=== PATIENT | female | born 1945 | race Caucasian/White ===

== ENCOUNTER 2017-02-18 11:48 | Inpatient (IN) ==
--- NOTE | 2017-02-18 12:58 | EKG Report ---
Test Performed on : 02/18/2017 12:45:30 PM Test Reason : AMS Blood Pressure : / mmHG Vent. Rate : 056 BPM Atrial Rate : 056 BPM P-R Int : 162 ms QRS Dur : 090 ms QT Int : 454 ms P-R-T Axes : 028 006 032 degrees QTc Int : 438 ms Sinus bradycardia. Otherwise normal ECG No previous ECGs available Unconfirmed Result
[2017-02-18 13:10] LABS: MANUAL DIFF NEEDED? NO
--- NOTE | 2017-02-18 13:15 | Diag Imaging Result Doc PS360 ---
EXAM: CT HEAD WITHOUT HISTORY: Altered mental status TECHNIQUE: CT brain without contrast. Dose reduction protocol. COMPARISON: None. FINDINGS: No parenchymal hemorrhage. No epidural or subdural hematoma. No subarachnoid hemorrhage. Chronic microvascular ischemic changes. This is most pronounced in the left frontoparietal region. No mass identified on this noncontrasted study. No sinus opacification. Mild ventricular prominence. IMPRESSION: 1.No hemorrhage 2.Microvascular ischemic changes Electronically signed by Abhinav Morton 02/18/2017 1:12 PM
--- NOTE | 2017-02-18 13:21 | Diag Imaging Result Doc PS360 ---
EXAM: CHEST-1 VIEW HISTORY: AMS TECHNIQUE: PA chest COMMENT: There is no evidence of acute cardiac or pulmonary disease. There are no previous studies. IMPRESSION: No acute disease. Electronically signed by Jose Echeverria 02/18/2017 1:19 PM
[2017-02-18 13:26] LABS: BASO% 0.7 % (0.0-0.8); EOS# 0.14 X1000 (0.0-0.7); EOS% 2.5 % (0.0-10.0); HEMATOCRIT 38.5 % (37.0-47.0); HEMOGLOBIN 12.8 g/dL (12.0-16.0); LYMPH# 1.95 X1000 (1.2-3.4); LYMPH% 35.2 % (20.5-51.1); MCH 29.6 PG (27-31); MCHC 33.2 g/dL (33-37); MCV 89.1 FL (81-99); MPV 10.5 FL (7.4-10.4); NEUT% 52.6 % (42.2-75.2); PLT 226 X1000 (130-400); RBC 4.32 XMIL (4.2-5.4)
[2017-02-18 13:44] LABS: INR 0.96 (0.86-1.15); PROTIME 13.6 Seconds (12.1-15.5); PTT PL 33.8 Seconds (22.6-43.9)
[2017-02-18 13:56] LABS: AGAP 9; ALBUMIN 4.2 g/dL (3.5-5.0); ALKALINE PHOSPHATASE 66 U/L (32-104); BUN 19 mg/dL (8-22); CALCIUM 9.4 mg/dL (8.8-10.2); CHLORIDE 104 mmol/L (98-107); CK PROFILE 72 U/L (24-173); COSMO 279; GOT 16 U/L (10-30); GPT 12 U/L (10-36); POTASSIUM 4.1 mmol/L (3.5-5.1); SODIUM 139 mmol/L (136-145); TCO2 27 mmol/L (25-35); TOTAL PROTEIN 6.8 g/dL (6.3-8.3)
--- NOTE | 2017-02-18 13:59 | ED EKG INTERP ---
This chart was entered by Darlene Riley Scribe, acting as scribe for Anurag Bullock MD. EKG Interpretation - EKG Time of EKG reading by physician:: 12:45 EKG Read and Signed by:: Anurag Bullock EKG Interpretation (*Must complete 3 of following elements*): Abnormal Rate: 56 Rhythm: sinus bradycardia [place]: normal QRS: normal [place] Interval: normal ST Wave: normal Comments: sinus bradycardia Attestation - Physician/ CARLOS Attestation Patient care was provided by Advanced Practice Provider:: No The physician spent face to face time with patient:: Yes Advanced Practice Provider documentation review:: Supervising physician onsite and consulted in the evaluation and care of this patient. The physician did have a face to face encounter with the patient. This chart was documented by the indicated scribe, (Darlene Riley Scribe) and accurately reflects the services I performed and decisions made by me, Anurag Bullock MD, as attested by the provider's signature.
[2017-02-18 14:19] LABS: UR AMPHETAMINES QUAL NONE DETECTED (NONE DETECT); UR BARBITUATES QUAL NONE DETECTED (NONE DETECT); UR BENZODIAZEPIN QUAL NONE DETECTED (NONE DETECT); UR CANNABINOIDS QUAL NONE DETECTED (NONE DETECT); UR COCAINE QUAL NONE DETECTED (NONE DETECT); UR MDMA QUAL NONE DETECTED (NONE DETECT); UR METHADONE QUAL NONE DETECTED (NONE DETECT); UR METHAMPHETAMINE QUAL NONE DETECTED (NONE DETECT); UR OPIATES QUAL NONE DETECTED (NONE DETECT); UR OXYCODONE QUAL NONE DETECTED (NONE DETECT); UR PCP QUAL NONE DETECTED (NONE DETECT); UR TCA QUAL NONE DETECTED (NONE DETECT)
[2017-02-18 14:23] LABS: BILIRUBIN URINE NEGATIVE (NEGATIVE); BLOOD URINE NEGATIVE (NEGATIVE); CLARITY CLEAR (CLEAR); COLOR YELLOW; GLUCOSE URINE NEGATIVE (NEGATIVE); LEUKOCYTES URINE 1+ (NEGATIVE); NITRITE URINE NEGATIVE (NEGATIVE); PROTEIN URINE TRACE mg/dL (NEGATIVE); SP GRAVITY URINE 1.015; UROBILINOGEN URINE NORMAL
[2017-02-18] MEDS ORDERED: ROCEPHIN 1 GM/NS 1 GM/50 ML IVPB IV ONE (14:33)
[2017-02-18 14:34] LABS: URINE CAST NONE SEEN /LPF; URINE CRYSTAL NONE SEEN /HPF; URINE CULTURE PL NEEDED? YES; URINE EPITHELIAL CELLS <10 /HPF (<10); URINE SOURCE CLEAN CATCH; URINE WBC <10 /HPF (<10)
--- NOTE | 2017-02-18 15:01 | PROVIDER DOCUMENTATION ---
This chart was entered by Darlene Riley Scribe, acting as scribe for Anurag Bullock MD. HPI-Neurological Disorder - General Chief Complaint: Stroke-Like Symptoms Stated Complaint: Stroke-Like Symptoms Time Seen by Provider: 02/18/17 12:09 Source: patient Allergies/Adverse Reactions: Patient Allergies Allergy/AdvReac Type Severity Reaction Status Date / Time metronidazole [From Flagyl] Allergy NAUSEA Verified 02/18/17 12:02 pregabalin [From Lyrica] Allergy Unknown Verified 02/18/17 12:02 Home Medications: Home Medication List Medication Instructions Recorded Confirmed Last Taken Type Aspirin 81 mg PO DAILY 02/18/17 02/18/17 Unknown History Atorvastatin Calcium [Lipitor] 20 mg PO DAILY 02/18/17 02/18/17 Unknown History Dicyclomine [Bentyl] 10 mg PO PRN PRN 02/18/17 02/18/17 Unknown History Fluoxetine [Prozac] 10 mg PO TID 02/18/17 02/18/17 Unknown History Gabapentin 300 mg PO DAILY 02/18/17 02/18/17 Unknown History Latanoprost 0.005% Oph Soln 1 drop BOTH EYES DAILY 02/18/17 02/18/17 Unknown History [Xalatan 0.005% Oph Soln] Levothyroxine [Synthroid] 50 mg PO DAILY 02/18/17 02/18/17 Unknown History Multivitamin [Multi-Vitamin Daily] 1 tab PO DAILY 02/18/17 02/18/17 Unknown History Sennosides/Docusate Sodium [Senna 2 tab PO DAILY 02/18/17 02/18/17 Unknown History S Tablet] Tramadol HCl [Tramadol HCl] 50 mg PO PRN PRN 02/18/17 02/18/17 Unknown History Trazodone [Desyrel] 25 mg PO DAILY 02/18/17 02/18/17 Unknown History - History of Present Illness-Neuro Nature of Presenting Problem: Patient is a 71 year old female who presents in the ED with complaints of neurological symptoms. She states she had a TIA in November 2016 that has caused residual right sided weakness, but states she woke up yesterday morning with weakness in both of her legs. She also states she noticed the right side of her face drooping at 8:00 a.m. this morning, and states she has also had difficul/ slurred speech. She reports history of hyperlipidemia, thyroid disease, and anxiety. She denies chest pain, syncope, fall, nausea/vomiting, and any other symptoms. Headache Location: denies: frontal, temporal, occipital, parietal, global, other Severity: reports: moderate Onset/Duration: reports: 24 hours ago Timing: reports: still present Context: reports: facial droop Character of Altered Mental Status: reports: unchanged from baseline Any recent trauma/injury?: reports: none Character of Deficits: reports: new weakness, impaired speech New weakness or altered sensation location:: reports: ANGY HINSON Cognitive Baseline: alert, oriented x3 Gait Baseline: walks without assistance Associated Symptoms: reports: slurred speech, weakness (left sided) Similar Symptoms Previously?: Yes (hx TIA) Recently seen or treated by another doctor?: No Review of Systems - Adult - REVIEW OF SYSTEMS - ADULT Constitutional: reports: no symptoms reported Eyes: reports: blurred vision Ears, Nose, Mouth & Throat: reports: no symptoms reported Cardiovascular: reports: no symptoms reported Respiratory: reports: no symptoms reported Gastrointestinal: reports: no symptoms reported Genitourinary: reports: no symptoms reported Musculoskeletal: reports: no symptoms reported Integumentary: reports: no symptoms reported Neurological: reports: slurred speech, other (left upper and lower extremity weakness, right facial droop) Psychiatric: reports: no symptoms reported Endocrine: reports: no symptoms reported Hematologic/Lymphatic: reports: no symptoms reported Allergic/Immunologic: reports: no symptoms reported All Other Systems: Reviewed and Negative Past History - Adult - PAST MEDICAL HISTORY-ADULT Review of Records: reports: Old Records Reviewed, Nursing Assessment Review, Medications Reviewed Cardiovascular: reports: hyperlipidemia Respiratory: reports: denies history Gastrointestinal: reports: denies history Obstetrical/Gynecological: reports: denies history Genitourinary: reports: denies history Musculoskeletal: reports: denies history Neurological: reports: TIA Psychiatric: reports: anxiety Endocrine/Immune: reports: thyroid disorder Other Conditions: reports: denies history - PRIOR SURGERIES/PROCEDURES Surgical/Procedure History: reports: orthopedic (extremity) - IMMUNIZATION STATUS Childhood Immunizations: See Nurse Assessment Flu Vaccine: See Nurse Assessment - FAMILY HISTORY Family History: reviewed, not pertinent - SOCIAL HISTORY Smoking: denies Substance Use: none/never Alcohol Use Frequency: never Living Situation: family Physical Exam- Neurological - Physical Exam-Neuro Initial Vital Signs Reviewed: Yes General Appearance: alert, no apparent distress Eye Exam: bilateral eye: normal inspection, PERRL, EOMI HENMT: normocephalic/atraumatic, moist mucous membranes Head Injury: no evidence of injury Neck: full range of motion Respiratory: chest non-tender, lungs clear, normal breath sounds, no pleuratic chest pain, no respiratory distress, no accessory muscle use Cardiovascular: normal peripheral pulses, regular rate, rhythm, no edema, no gallop, no JVD, no murmur Abdominal Exam: non tender, soft, no organomegaly, no pulsatile mass Lymphatic: no adenopathy Extremity: non-tender, no pedal edema, 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 Exam: normal hearing, PERRL, abnormal speech (slurred), facial asymmetry, facial droop (right) Coordination/Gait: normal gait Motor/Sensory: weak motor strength LUE, weak motor strength LLE Neurologic: facial droop (right) Integumentary: normal color, normal turgor, warm/dry Psych/Mental Status: normal mood/affect, oriented x 3 - Glascow Coma Scale Best Eye Response: (4) open spontaneously Best Verbal Response: (5) oriented Best Motor Response: (6) obeys commands Total Glascow Score: 15 Progress - PLAN OF CARE/RESULTS Progress/Plan/Lab Results: Vital Signs - 8 hr 02/18/17 11:50 Temperature 98.7 F Pulse Rate 68 Respiratory Rate 16 Blood Pressure 146/77 O2 Sat by Pulse Oximetry 96 Laboratory Results - last 24 hr 02/18/17 02/18/17 02/18/17 12:50 12:50 12:50 WBC RBC Hgb Hct MCV MCH MCHC RDW Std Deviation Plt Count MPV Immature Gran % (Auto) Neut % (Auto) Lymph % (Auto) [place] % (Auto) Eos % (Auto) Baso % (Auto) Immature Gran # (Auto) Neut # (Auto) Lymph # (Auto) [place] # (Auto) Eos # (Auto) Baso # (Auto) PT INR APTT (Factor Assay) Sodium 139 Potassium 4.1 Chloride 104 Carbon Dioxide 27 Anion Gap 9 BUN 19 Creatinine 0.6 Estimated GFR/1.73 m2 > 60 BUN/Creatinine Ratio 32 Glucose 82 Calculated Osmolality 279 Calcium 9.4 Magnesium Total Bilirubin 0.40 AST 16 ALT 12 Alkaline Phosphatase 66 Creatine Kinase 72 Troponin T < 0.010 Wva-A-Oncchgcdrle Pept Total Protein 6.8 Albumin 4.2 Globulin 3.0 Albumin/Globulin Ratio 2.0 Plasma Lactate 0.9 Urine Source Urine Color Urine Clarity Urine pH Ur Specific [place] Urine Protein Urine Ketones Urine Blood Urine Nitrite Urine Bilirubin Urine Urobilinogen Urine Microscopic RBC Urine WBC Urine Microscopic WBC Ur Epithelial Cells Urine Crystals Urine Bacteria Urine Casts Urine Yeast Urine Glucose Urine Opiates Screen Ur Oxycodone Screen Urine Methadone Screen Ur Barbituates Screen Ur Tricyclics Screen Ur Phencyclidine Scrn Ur Amphetamines Screen U Methamphetamines Scrn Urine MDMA Screen U Benzodiazepines Scrn Urine Cocaine Screen U Cannabinoids Screen Plasma/Serum Ethyl Alc 02/18/17 02/18/17 02/18/17 12:50 12:50 12:50 WBC 5.54 RBC 4.32 Hgb 12.8 Hct 38.5 MCV 89.1 MCH 29.6 MCHC 33.2 RDW Std Deviation 12.9 Plt Count 226 MPV 10.5 H Immature Gran % (Auto) 0.0 Neut % (Auto) 52.6 Lymph % (Auto) 35.2 [place] % (Auto) 9.0 Eos % (Auto) 2.5 Baso % (Auto) 0.7 Immature Gran # (Auto) 0.00 Neut # (Auto) 2.91 Lymph # (Auto) 1.95 [place] # (Auto) 0.50 Eos # (Auto) 0.14 Baso # (Auto) 0.04 PT 13.6 INR 0.96 APTT (Factor Assay) 33.8 Sodium Potassium Chloride Carbon Dioxide Anion Gap BUN Creatinine Estimated GFR/1.73 m2 BUN/Creatinine Ratio Glucose Calculated Osmolality Calcium Magnesium Total Bilirubin AST ALT Alkaline Phosphatase Creatine Kinase Troponin T [id number]-I-Qddmuojzdcd Pept Total Protein Albumin Globulin Albumin/Globulin Ratio Plasma Lactate Urine Source Urine Color Urine Clarity Urine pH Ur Specific [place] Urine Protein Urine Ketones Urine Blood Urine Nitrite Urine Bilirubin Urine Urobilinogen Urine Microscopic RBC Urine WBC Urine Microscopic WBC Ur Epithelial Cells Urine Crystals Urine Bacteria Urine Casts Urine Yeast Urine Glucose Urine Opiates Screen Ur Oxycodone Screen Urine Methadone Screen Ur Barbituates Screen Ur Tricyclics Screen Ur Phencyclidine Scrn Ur Amphetamines Screen U Methamphetamines Scrn Urine MDMA Screen U Benzodiazepines Scrn Urine Cocaine Screen U Cannabinoids Screen Plasma/Serum Ethyl Alc 02/18/17 02/18/17 02/18/17 12:50 12:50 13:35 WBC RBC Hgb Hct MCV MCH MCHC RDW Std Deviation Plt Count MPV Immature Gran % (Auto) Neut % (Auto) Lymph % (Auto) [place] % (Auto) Eos % (Auto) Baso % (Auto) Immature Gran # (Auto) Neut # (Auto) Lymph # (Auto) [place] # (Auto) Eos # (Auto) Baso # (Auto) PT INR APTT (Factor Assay) Sodium Potassium Chloride Carbon Dioxide Anion Gap BUN Creatinine Estimated GFR/1.73 m2 BUN/Creatinine Ratio Glucose Calculated Osmolality Calcium Magnesium 2.2 Total Bilirubin AST ALT Alkaline Phosphatase Creatine Kinase Troponin T [id number]-Yfymzqtpelh Pept 196 Total Protein Albumin Globulin Albumin/Globulin Ratio Plasma Lactate Urine Source CLEAN CATCH Urine Color YELLOW Urine Clarity CLEAR Urine pH 7.0 Ur Specific [place] 1.015 Urine Protein TRACE A Urine Ketones NEGATIVE Urine Blood NEGATIVE Urine Nitrite NEGATIVE Urine Bilirubin NEGATIVE Urine Urobilinogen NORMAL Urine Microscopic RBC Not Reportable Urine WBC 1+ A Urine Microscopic WBC <10 Ur Epithelial Cells <10 Urine Crystals NONE SEEN Urine Bacteria NEGATIVE Urine Casts NONE SEEN Urine Yeast NONE SEEN Urine Glucose NEGATIVE Urine Opiates Screen Ur Oxycodone Screen Urine Methadone Screen Ur Barbituates Screen Ur Tricyclics Screen Ur Phencyclidine Scrn Ur Amphetamines Screen U Methamphetamines Scrn Urine MDMA Screen U Benzodiazepines Scrn Urine Cocaine Screen U Cannabinoids Screen Plasma/Serum Ethyl Alc 02/18/17 13:35 WBC RBC Hgb Hct MCV MCH MCHC RDW Std Deviation Plt Count MPV Immature Gran % (Auto) Neut % (Auto) Lymph % (Auto) [place] % (Auto) Eos % (Auto) Baso % (Auto) Immature Gran # (Auto) Neut # (Auto) Lymph # (Auto) [place] # (Auto) Eos # (Auto) Baso # (Auto) PT INR APTT (Factor Assay) Sodium Potassium Chloride Carbon Dioxide Anion Gap BUN Creatinine Estimated GFR/1.73 m2 BUN/Creatinine Ratio Glucose Calculated Osmolality Calcium Magnesium Total Bilirubin AST ALT Alkaline Phosphatase Creatine Kinase Troponin T Ggy-F-Btqqopwewyr Pept Total Protein Albumin Globulin Albumin/Globulin Ratio Plasma Lactate Urine Source Urine Color Urine Clarity Urine pH Ur Specific [place] Urine Protein Urine Ketones Urine Blood Urine Nitrite Urine Bilirubin Urine Urobilinogen Urine Microscopic RBC Urine WBC Urine Microscopic WBC Ur Epithelial Cells Urine Crystals Urine Bacteria Urine Casts Urine Yeast Urine Glucose Urine Opiates Screen NONE DETECTED Ur Oxycodone Screen NONE DETECTED Urine Methadone Screen NONE DETECTED Ur Barbituates Screen NONE DETECTED Ur Tricyclics Screen NONE DETECTED Ur Phencyclidine Scrn NONE DETECTED Ur Amphetamines Screen NONE DETECTED U Methamphetamines Scrn NONE DETECTED Urine MDMA Screen NONE DETECTED U Benzodiazepines Scrn NONE DETECTED Urine Cocaine Screen NONE DETECTED U Cannabinoids Screen NONE DETECTED Plasma/Serum Ethyl Alc Orders Category Date Time Status Cardiac Monitoring DIRECTED Care 02/18/17 12:31 Active Finger Stick Blood Sugar (ED) DIRECTED Care 02/18/17 12:31 Active Saline Loc NOW Care 02/18/17 12:31 Active CHEST-1 VIEW [RAD] Stat Exams 02/18/17 12:[address] HEAD W/O CONTRAST [CT] Stat Exams 02/18/17 12:31 Completed ALCOHOL BLOOD Stat Lab 02/18/17 12:50 Completed CBC WITH ELECTRONIC DIFF [HEME] Stat Lab 02/18/17 12:50 Completed CK PROFILE [SP CHEM] Stat Lab 02/18/17 12:50 Completed COMPREHENSIVE METABOLIC PANEL [CHEM] Stat Lab 02/18/17 12:50 Completed LACTATE, PLASMA [CHEM] Stat Lab 02/18/17 12:50 Completed MAGNESIUM [CHEM] Stat Lab 02/18/17 12:50 Completed PRO B-NATRIURETIC PEPTIDE Stat Lab 02/18/17 12:50 Completed [address]IME WITH INR PL [COAG] Stat Lab 02/18/17 12:[address] [COAG] Stat Lab 02/18/17 12:50 Completed TROPONIN T Stat Lab 02/18/17 12:[address] W/POSS RFLX CULT [URINALYSIS] Stat Lab 02/18/17 13:35 Completed URINE CULTURE [RM] Routine Lab 02/18/17 14:34 Ordered URINE DRUG SCREEN PL Stat Lab 02/18/17 13:35 Completed CefTRIAXONE 1 GM/NS [Rocephin 1 gm/Ns] Med 02/18/17 14:33 Active 1 gm in 50 ml IV NOW Pulse Oximetry Stat Oth 02/18/17 12:31 Active EKG [EKG] Stat Ther 02/18/17 12:31 Draft Result Diagrams: 02/18/17 12:50 02/18/17 12:50 - REASSESSMENT Reassessment #1 Time Reassessed: 15:00 Status: improving (Reports her symptoms are improving and she can talk better now. Will admit to Dr. Josue.) - CONSULTS/PCP/HOSPITALIST Notification #1 *Consult/PCP/Hospitalist*: Dr. Josue paged Departure - Departure Date of Disposition Decision: 02/18/17 Time of Disposition Decision: 15:00 DIAGNOSIS: TIA (transient ischemic attack) Disposition: ADMITTED INPATIENT 09 Certified Medical Emergency: Emergent Condition: Stable Referrals and Follow-Ups: None,PCP [Primary Care Provider] - - Critical Care Note This patient required my direct & personal management of CC.: No Attestation - Physician/ CARLOS Attestation Patient care was provided by Advanced Practice Provider:: No The physician spent face to face time with patient:: Yes Advanced Practice Provider documentation review:: Supervising physician onsite and consulted in the evaluation and care of this patient. The physician did have a face to face encounter with the patient. - NIH Stroke Scale NIH Type: Initial Evaluation Level of Consciousness: 0-Alert LOC Questions (ask month and age): 0-Answers Both Correctly LOC Commands (ask to open & close eyes;make a fist, let go): 0-Obeys Both Correctly Best Gaze (horizontal eye movement): 0-Normal Facial Palsy (show teeth or raise eyebrows & close eyes tght: 2-Partial Paralysis Stroke tPA Guidelines - Inclusion Criteria for IV tPA 18 years old or older: Yes Onset <3 hours ago *OR* 3-4.5 hours ago: No - Consultation Reason not a candidate:: unknown time of onset of symptoms This chart was documented by the indicated scribe, (Darlene Riley Scribe) and accurately reflects the services I performed and decisions made by me, Anurag Bullock MD, as attested by the provider's signature.
[2017-02-18] MEDS ORDERED: BENTYL PO PRN ×2 (16:27→16:28)
[2017-02-18] MEDS ORDERED: ULTRAM PO PRN (16:27)
--- NOTE | 2017-02-18 16:28 | Diag Imaging Result Doc PS360 ---
EXAM: MRI BRAIN W/O CONTRAST INDICATION: R sided weakness COMPARISON: None. FINDINGS: There is no evidence of acute infarct. There is patchy T2/FLAIR hyperintensity in the periventricular and subcortical white matter most compatible with moderate microangiopathy. There is no discrete intracranial mass, mass effect, or intracranial hemorrhage. There is a small right mastoid air cell effusion. Surrounding soft tissues and bony structures are essentially unremarkable, otherwise. IMPRESSION: Findings suggesting moderate white matter microangiopathy but no definite acute intracranial pathology. Electronically signed by Len Valenzuela 02/18/2017 4:26 PM
--- NOTE | 2017-02-18 17:00 | HISTORY AND PHYSICAL ---
CHIEF COMPLAINT: Bilateral lower extremity weakness, slurred speech and right- sided facial drooping. HISTORY OF PRESENTING ILLNESS: This is a 71-year-old female who presented to [facility] to the ER today with complaints of bilateral lower extremity weakness and slurred speech and right-sided facial drooping that began around lunch today. Staff at her assisted living facility noticed that when she came to the dining room she was having slurred speech and right-sided facial drooping. So, she was sent to the emergency room. She was noted to have had a TIA in November of this year that caused residual right-sided weakness. Her workup in the ER today showed a CT of the head with no hemorrhage and microvascular ischemic changes. Chest x-ray showed no acute disease. Laboratory data was unremarkable. She is noted to have weakness to her right side on examination. Some right-sided facial drooping remains. Her speech is improving but is still mildly slurred at this time. So, she was admitted to the medical unit for further evaluation and treatment. PAST MEDICAL HISTORY: Of hyperlipidemia, hypothyroidism, anxiety and TIA. PAST SURGICAL HISTORY: Bilateral knee replacement. Right thumb surgery and cataract surgery. FAMILY HISTORY: Noncontributory. SOCIAL HISTORY: She currently lives at an assisted living facility. Denies any tobacco, alcohol, or illicit drug use. ALLERGIES TO: Metronidazole and pregabalin. HOME MEDICATIONS: She takes aspirin 81 mg p.o. daily. Atorvastatin 20 mg p.o. daily. Dicyclomine 10 mg p.o. p.r.n. Prozac 10 mg p.o. t.i.d. Gabapentin 300 mg p.o. daily. Xalatan ophthalmic solution to both eyes, 1 drop to both eyes daily. Synthroid 50 mcg p.o. daily. Multivitamin p.o. daily. Senna S 2 tablets p.o. daily. Tramadol 50 mg p.o. p.r.n. She can have that 3 times daily as needed for pain and trazodone 25 mg p.o. daily. LABORATORY DATA: Showed a white blood cell count of 5.54, hemoglobin 12.8, hematocrit 38.5, platelets 226,000. PT and INR of 13.6 and 0.96. Sodium 139, potassium 4.1, chloride 104, CO2 27, BUN of 19, creatinine 0.6, glucose of 82, magnesium of 2.2. Creatine kinase was 72 with a troponin of less than 0.010. ProBNP was 196, plasma lactate 0.9. Urinalysis was negative. Urine drug screen was negative. Serum alcohol level showed none detected. A chest x- ray showed no acute disease. EKG showed sinus bradycardia at 56. CT of the head showed no hemorrhage and microvascular ischemic changes. REVIEW OF SYSTEMS: She denied any fever, chills, blurred vision, dizziness, chest pain, coughing, shortness of breath. She is noted to have some slurred speech, right-sided facial drooping. Bilateral lower extremity weakness with left being greater than right in strength. She denied any abdominal pain, constipation, diarrhea, nausea, vomiting or burning or hurting with urination. PHYSICAL EXAMINATION: On arrival, she had a temperature of 98.7 degrees, pulse 68, respirations 16, blood pressure 146/77, saturating 96% on room air. GENERAL: This is a 71-year-old female who is lying in the bed, and answers questions appropriately. HEENT: Is normocephalic, except for some mild right-sided facial drooping and some very mild slurred speech. It continues to improve as her time with us has gone on. Extraocular movements are intact. The oropharynx and nares are clear. NECK: Supple. LUNGS: Clear to auscultation bilaterally with equal lung expansion and chest wall movement. HEART: With regular rate and rhythm. No murmurs, rubs, or gallops. ABDOMEN: Soft, nontender, nondistended. Bowel sounds are present x4 quadrants. EXTREMITIES: There is no clubbing, cyanosis, or edema. NEUROLOGICAL: The patient is noted to have some mild right-sided facial drooping. Some mild slurred speech. She has a right-sided weakness with hand grasp and lower extremity. Otherwise, negative neurological exam. ASSESSMENT: 1. Transient ischemic attack versus cerebrovascular accident. 2. Hypothyroidism. 3. History of hyperlipidemia. 4. Anxiety. PLANS: She is being admitted to the medical unit at [place]. Placed on telemetry. We will obtain a urine culture. She will continue her home medications as previously identified. We will check an MRI of the brain. We will check a carotid and an echocardiogram in the a.m. and recheck labs. Dictated by ALFRED Saravia for Brian Josue MD cc: ALFRED Saravia MD pt examined, possible tia versus other, ?MS, mri was unrevealing APENOT MTDD
[2017-02-18] MEDS ORDERED: TYLENOL PO PRN (18:28)
[2017-02-18] MEDS ORDERED: ZOFRAN IV PRN (18:28)
[2017-02-18] MEDS: ULTRAM PO PRN (22:21)
[2017-02-19 06:39] LABS: MANUAL DIFF NEEDED? NO
[2017-02-19 06:55] LABS: BASO% 0.2 % (0.0-0.8); EOS# 0.19 X1000 (0.0-0.7); EOS% 3.4 % (0.0-10.0); HEMATOCRIT 39.6 % (37.0-47.0); HEMOGLOBIN 13.3 g/dL (12.0-16.0); LYMPH# 2.06 X1000 (1.2-3.4); LYMPH% 36.5 % (20.5-51.1); MCH 29.7 PG (27-31); MCHC 33.6 g/dL (33-37); MCV 88.4 FL (81-99); MONO# 0.52 X1000 (0.11-0.59); MONO% 9.2 % (1.7-9.3); MPV 10.7 FL (7.4-10.4); NEUT% 50.7 % (42.2-75.2); PLT 225 X1000 (130-400); RBC 4.48 XMIL (4.2-5.4)
[2017-02-19 07:08] LABS: AGAP 11; BUN 21 mg/dL (8-22); CALCIUM 9.1 mg/dL (8.8-10.2); CHLORIDE 104 mmol/L (98-107); COSMO 280; SODIUM 139 mmol/L (136-145); TCO2 24 mmol/L (25-35)
[2017-02-19] MEDS ORDERED: SYNTHROID PO SCH ×3 (07:29→09:00)
[2017-02-19] MEDS ORDERED: MULTI-VITAMIN PO SCH (09:00)
[2017-02-19] MEDS ORDERED: THERA M PLUS PO SCH (09:00)
[2017-02-19] MEDS ORDERED: PROZAC PO SCH (09:00)
[2017-02-19] MEDS ORDERED: NEURONTIN PO SCH ×2 (09:00)
[2017-02-19] MEDS ORDERED: PERICOLACE PO SCH ×2 (09:00)
[2017-02-19] MEDS ORDERED: ASPIRIN PO SCH ×2 (09:00)
[2017-02-19] MEDS ORDERED: LIPITOR PO SCH ×2 (09:00)
[2017-02-19] MEDS ORDERED: DESYREL PO SCH ×3 (09:00→21:00)
[2017-02-19] MEDS ORDERED: XALATAN 0.005% OPH SOLN BOTH EYES SCH ×2 (09:00)
[2017-02-19] MEDS: ULTRAM PO PRN (12:28)
--- NOTE | 2017-02-19 14:46 | Extremity Venous Study ---
EXAM: Carotid Ultrasound HISTORY: tia vs. CVA TECHNIQUE: Grayscale, duplex, and color Doppler evaluation was performed of the carotid arteries bilaterally. COMPARISON: None. FINDINGS: There is no significant atherosclerotic plaque. There are no velocity elevations to suggest hemodynamically significant carotid artery stenosis. Maximal velocity right internal carotid artery is 83 cm/s. Maximal systolic velocity left internal carotid artery is 116 cm/s. ICA/CCA ratios are within normal limits. Bilateral vertebral arterial flow is antegrade. IMPRESSION: No evidence for hemodynamically significant carotid artery stenosis. Estimated stenosis is less than 50% bilaterally. Electronically signed by Gillian Mahoney 02/19/2017 2:43 PM
[2017-02-19 15:40] VITALS: BP 133/65
--- NOTE | 2017-02-19 15:59 | DISCHARGE SUMMARY ---
ADMISSION DATE: 02/18/2017 DISCHARGE DATE: 02/19/2017 PRIMARY CARE PHYSICIAN: None. ADMISSION DIAGNOSES: 1. Transient ischemic attack versus cerebrovascular accident. 2. Hypothyroidism. 3. History of hyperlipidemia. 4. Anxiety. DISCHARGE DIAGNOSES: 1. Transient ischemic attack resolved. 2. Hypothyroidism. 3. History of hyperlipidemia. 4. Anxiety. SUMMARY OF FINDINGS: This is a 71-year-old, female who presented to the ER with complaints of bilateral lower extremity weakness, slurred speech and right- sided facial drooping that began around lunch yesterday. The staff at her assisted living facility noticed that when she came to the dining room she was having some slurred speech and right-sided facial drooping. She has a history of a TIA back in November of this year that caused some residual right-sided weakness so she was sent to the emergency room for evaluation and treatment. Her ER workup showed a CT of the head with no hemorrhage and microvascular ischemic changes. Her chest x-ray showed no acute disease. Laboratory data was unremarkable. She was noted to have weakness on her right side on examination and some mild right-sided facial drooping. Speech was improved but still mildly slurred on admission. We did a brain MRI that showed moderate white matter microangiopathy but no definite acute intracranial pathology. We did a carotid Doppler study that showed no evidence for hemodynamically significant carotid artery stenosis. Estimated stenosis was less than 50% bilaterally. She has been up and ambulated with physical therapy using her walker and did well, and it is felt that she can safely be discharged home today. She will continue her home medications as follows: 1. Aspirin 81 mg p.o. daily. 2. Lipitor 20 mg p.o. at bedtime. 3. Bentyl 10 mg p.o. p.r.n. 4. Prozac 30 mg p.o. daily. 5. Gabapentin 300 mg p.o. at bedtime. 6. Xalatan drops 1 drop to both eyes at bedtime. 7. Synthroid 50 mcg p.o. daily. 8. Multivitamin p.o. daily. 9. Senna-S tablet 2 p.o. daily. 10. Tramadol 50 mg p.o. b.i.d. p.r.n. 11. Desyrel 25 mg p.o. at bedtime. 12. Mobic 7.5 mg p.o. daily. FOLLOWUP: She will need to obtain a primary care physician and follow up with them in 1-2 weeks. We will give her the physical referral line at this time. DISCHARGE TIME: 35 minutes. Dictated by ALFRED Saravia for Brian Josue MD cc: ALFRED Saravia MD pt seen face to face, examined and chart reviewed , pt hAS HAD COMPLETE neurologic recovery, mri does not reveal, CVA or changes consistent diagnosis MS, carotid was unremarkable, recommended resuming aspirin therapy and followup with primary neurologist YELITZA ROCHE
--- NOTE | 2017-02-19 18:14 | ECHO REPORT ---
ORDER DATE: 02/19/2017 INDICATION: CVA versus TIA. FINDINGS: 1. The right atrium appears normal in size at 3.2 cm. 2. Mild tricuspid regurgitation. Insufficient data to estimate RV systolic pressure. 3. Normal RV size and systolic function. 4. Mild pulmonic insufficiency. 5. Normal left atrial size at 3.8. 6. No mitral valve prolapse. Mild mitral regurgitation. 7. Normal LV size, end-diastolic dimension of 5. Normal wall thicknesses with a posterior and interventricular septal thickness 1 cm each. Normal LV systolic function. Calculated EF of 65% with normal wall motion. 8. Aortic valve opens well. It is trileaflet. No evidence of stenosis or insufficiency. 9. Aorta appears normal visualized segments. 10. No pericardial effusion seen. cc: MD Sparkle Perez CRNP
== END 2017-02-19 16:28 | disposition home health service (06) ==
LOC: P.ED 11:48 → P.MEDSURG 15:38
PROVIDERS: ATTEND Internal Medicine

== ENCOUNTER 2019-05-09 13:27 | Inpatient (IN) ==
[2019-05-09 14:42] LABS: BASO# 0.02 X1000 (0.0-0.2); BASO% 0.2 % (0.0-0.8); EOS# 0.07 X1000 (0.0-0.7); EOS% 0.8 % (0.0-10.0); HEMATOCRIT 36.6 % (37.0-47.0); HEMOGLOBIN 12.1 g/dL (12.0-16.0); LYMPH# 2.16 X1000 (1.2-3.4); LYMPH% 23.2 % (20.5-51.1); MCH 29.7 PG (27-31); MCHC 33.1 g/dL (33-37); MCV 89.9 FL (81-99); MONO# 0.85 X1000 (0.11-0.59); MONO% 9.1 % (1.7-9.3); MPV 10.2 FL (7.4-10.4); NEUT# 6.23 X1000 (1.4-6.5); NEUT% 66.7 % (42.2-75.2); PLT 276 X1000 (130-400); RBC 4.07 XMIL (4.2-5.4); RDW 12.9 % (11.5-14.5); WBC 9.33 X1000 (4.8-10.8)
[2019-05-09] MEDS ORDERED: CARAFATE LIQUID PO ONE (14:47)
[2019-05-09 14:49] LABS: INR 1.16
[2019-05-09 14:50] LABS: PTT 32.9 Seconds (22.3-41.8)
--- NOTE | 2019-05-09 15:02 | Diag Imaging Result Doc PS360 ---
EXAM: CHEST-1 VIEW HISTORY: sob TECHNIQUE: Single view COMPARISON: 12/30/2017 FINDINGS: The lungs are well expanded. The heart is not enlarged. The vessels are not distended. There are no infiltrates. No effusion identified. IMPRESSION: Negative exam. Electronically signed by Abhinav Morton 05/09/2019 3:00 PM
[2019-05-09 15:05] LABS: AGAP 14; ALB/GLOB RATIO 1.9; ALKALINE PHOSPHATASE 89 U/L (32-104); BUN 16 mg/dL (8-22); CALCIUM 8.8 mg/dL (8.8-10.2); CHLORIDE 99 mmol/L (98-107); COSMO 278; CREATININE 0.8 mg/dL (0.5-0.9); ESTIMATED GFR > 60; GLUCOSE 120 mg/dL (70-104); GOT 17 U/L (10-30); GPT 9 U/L (10-36); POTASSIUM 3.7 mmol/L (3.5-5.1); SODIUM 138 mmol/L (136-145); TCO2 25 mmol/L (25-35); TOTAL BILIRUBIN 0.35 mg/dL (0.20-1.00); TOTAL PROTEIN 6.1 g/dL (6.3-8.3)
[2019-05-09] MEDS ORDERED: SOLU-MEDROL IV ONE (15:36)
--- NOTE | 2019-05-09 16:46 | EKG Report ---
Test Performed on : 05/09/2019 4:23:43 PM Test Reason : sob Blood Pressure : / mmHG Vent. Rate : 078 BPM Atrial Rate : 078 BPM P-R Int : 164 ms QRS Dur : 084 ms QT Int : 396 ms P-R-T Axes : 026 -07 028 degrees QTc Int : 451 ms Sinus rhythm. with premature supraventricular complexes. Otherwise normal ECG When compared with ECG of 30-DEC-2017 11:30, T wave amplitude has decreased in Anterior leads Unconfirmed Result
--- NOTE | 2019-05-09 17:32 | Diag Imaging Result Doc PS360 ---
EXAM: CT ANGIOGRM PULMONARY ARTERIES HISTORY: elevated d-dimer, sob TECHNIQUE: CT chest with intravenous contrast. Pulmonary two protocol with MIP images. COMPARISON: None. FINDINGS: No aortic aneurysm or dissection. Normal opacification of the pulmonary arteries and their ranch's. No cardiomegaly. Tiny pericardial effusion. No enlarged lymph nodes. No consolidation. No pulmonary edema. No bronchiectasis. Minimal basilar atelectasis. Trace pleural effusion. IMPRESSION: 1.No pulmonary emboli 2.Tiny pericardial effusion with trace pleural effusions This exam was performed using automated exposure control, adjustment of mA or kV according to patient size, and/or use of iterative reconstruction technique. Electronically signed by Abhinav Morton 05/09/2019 5:30 PM
--- NOTE | 2019-05-09 18:09 | PROVIDER DOCUMENTATION ---
This chart was entered by Brittani Agarwal Scribe, acting as scribe for Javier Barriga MD. HPI-Abdominal Pain/GI Problem - General Chief Complaint: Epigastric Pain Stated Complaint: SOB Time Seen by Provider: 05/09/19 14:21 Source: patient, family (), EMS Allergies/Adverse Reactions: Patient Allergies Allergy/AdvReac Type Severity Reaction Status Date / Time metronidazole [From Flagyl] Allergy NAUSEA Verified 05/09/19 15:20 pregabalin [From Lyrica] Allergy Unknown Verified 05/09/19 15:20 Home Medications: Home Medication List Medication Instructions Recorded Confirmed Last Taken Type Fluoxetine [Prozac] 10 mg PO TID 02/18/17 05/09/19 05/09/19 07:00 History Gabapentin 300 mg PO BID 02/18/17 05/09/19 05/09/19 07:00 History Latanoprost 0.005% Oph Soln 1 drop BOTH EYES QHS 02/18/17 05/09/19 05/09/19 07:00 History [Xalatan 0.005% Oph Soln] Levothyroxine [Synthroid] 88 mcg PO DAILY@0700 02/18/17 05/09/19 05/09/19 07:00 History Multivitamin [Multi-Vitamin Daily] 1 tab PO DAILY 02/18/17 05/09/19 05/09/19 07:00 History Trazodone [Desyrel] 25 mg PO QHS 02/18/17 05/09/19 05/08/19 21:00 History Aspirin 81 mg PO DAILY 12/19/18 05/09/19 05/09/19 07:00 History Oxybutynin [Ditropan] 5 mg PO BID 12/19/18 05/09/19 05/09/19 07:00 History ROSUVAstatin [Crestor] 20 mg PO DAILY 12/19/18 05/09/19 05/09/19 07:00 History Sulindac 200 mg PO BID 12/19/18 05/09/19 05/09/19 07:00 History Dicyclomine [Bentyl] 20 mg PO DAILY 05/09/19 05/09/19 05/09/19 07:00 History Doxycycline Hyclate 100 mg PO BID 05/09/19 05/09/19 05/09/19 07:00 History Methylphenidate HCl 5 mg PO BID 05/09/19 05/09/19 05/09/19 07:00 History Omeprazole 30 mg PO DAILY 05/09/19 05/09/19 05/09/19 07:00 History - History of Present Illness-ABD Nature of Presenting Problems: 73 yowf presents to the ed with c/o spasm in esophagus with epigastric pain. pt sts has seen dr mahnaz ORDONEZ and recently had esophagus stretched due to having difficulty with swallowing food and medications. pt sts when sp[asm occurs she becomes SOB. pt has recently been dx with a sinus infection and currently has thick green mucous with post nasal drainage. pt has noted since her GI appointment she has had excessive belching and still struggling to swallow. pt on exam is nontoxic in appearance and is handling her secretions without difficulty Abdominal Pain Onset Location: reports: epigastric Pain Radiation: reports: other (throat) Quality of Pain: reports: fullness Severity in ED: reports: moderate Onset/Duration: reports: gradual Timing: reports: intermittent Activities at Onset: denies: eating Exposure to sick contacts?: No Modifying Factors: worse with: eating Associated Symptoms: reports: EENT symptoms, fatigue, fever/chills, headaches, loss of appetite, sinus congestion/drainage. denies: back/neck pain, chest pain Last BM: last night Dark Stools Present?: reports: none noticed Rectal Bleeding: reports: none # of Diarrhea Episodes: 0 Rectal Pain: reports: none # of Vomiting Episodes: 0 Emesis Description: reports: none Bruising or Bleeding Gums?: No Similar Symptoms Previously?: Yes Recently seen or treated by another doctor?: Yes (dr mahnaz ORDONEZ) Review of Systems - Adult - REVIEW OF SYSTEMS - ADULT Constitutional: reports: see HPI, chills, fever, fatique Eyes: reports: no symptoms reported Ears, Nose, Mouth & Throat: reports: see HPI, sinus problem, throat pain Cardiovascular: denies: chest pain, palpitations Respiratory: reports: shortness of breath. denies: cough, wheezing Gastrointestinal: reports: see HPI, abdominal pain, poor appetite Genitourinary: reports: no symptoms reported Musculoskeletal: reports: no symptoms reported Integumentary: reports: no symptoms reported Neurological: reports: see HPI, headache/migraines. denies: dizziness/vertigo, slurred speech Psychiatric: reports: no symptoms reported Endocrine: reports: no symptoms reported Hematologic/Lymphatic: reports: no symptoms reported Allergic/Immunologic: reports: no symptoms reported All Other Systems: Reviewed and Negative Past History - Adult - PAST MEDICAL HISTORY-ADULT Review of Records: reports: Old Records Reviewed, Nursing Assessment Review, Medications Reviewed, Social history reviewed & non-contributory. Major Childhood Illnesses: reports: denies history Cardiovascular: reports: HTN, hyperlipidemia Respiratory: reports: denies history Gastrointestinal: reports: denies history, other (spastic bowel) Obstetrical/Gynecological: reports: denies history Genitourinary: reports: denies history Musculoskeletal: reports: denies history Neurological: reports: CVA, Multiple Sclerosis, Seizures/Epilepsy, TIA Psychiatric: reports: anxiety Endocrine/Immune: reports: thyroid disorder (hypo) Other Conditions: reports: denies history, cataract/glaucoma - PRIOR SURGERIES/PROCEDURES Surgical/Procedure History: reports: hysterectomy, tonsillectomy, orthopedic (extremity) (R thumb), joint replacement (bilateral knees), other (cataract removal) - IMMUNIZATION STATUS Childhood Immunizations: See Nurse Assessment Flu Vaccine: See Nurse Assessment - FAMILY HISTORY Family History: reviewed, not pertinent - SOCIAL HISTORY Smoking: denies Substance Use: denies Living Situation: family Physical Exam-General - PHYSICAL EXAM-ADULT Initial Vital Signs Reviewed: Yes (temp 99.7) - CONSTITUTIONAL General Appearance: appears well, alert, no apparent distress, obese - EYES Eyes: PERRL/EOMI - HEAD, EARS, NOSE, MOUTH & THROAT HENMT: dental decay, frontal tenderness, maxillary tenderness. negative: moist mucous membranes (dry oral) - NECK Neck: non-tender, full range of motion, supple, normal inspection - RESPIRATORY Respiratory: lungs clear, normal breath sounds, other (c/o sob with spasms) - CARDIOVASCULAR Cardiovascular: normal peripheral pulses, regular rate, rhythm - CHEST (BREASTS) Chest/Breast: tenderness (lower chest wall/epigastric area) - GASTROINTESTINAL (ABDOMEN) Abdominal Exam: normal bowel sounds, soft, guarding, tenderness (epigastric) - GENITOURINARY Female Genitalia/Pelvic Exam: deferred Rectal Exam: deferred Hemoccult Exam: deferred - LYMPHATIC Lymphatic: no adenopathy - MUSCULOSKELETAL Back Exam: normal inspection Extremity: normal inspection, normal capillary refill, pelvis stable, other (pt uses wheelchair at baseline due to BLE weakness). negative: normal gait (pt has MS) - SKIN Integumentary: normal color, normal turgor, warm/dry - NEUROLOGIC Neurologic: grossly normal - PSYCHIATRIC Psych/Mental Status: normal mood/affect, normal thought content, normal thought process, oriented x 3 Progress - PLAN OF CARE/RESULTS Progress/Plan/Lab Results: Vital Signs - 8 hr 05/09/19 14:05 Temperature 99.7 F H Pulse Rate 83 Respiratory Rate 19 Blood Pressure 133/74 O2 Sat by Pulse Oximetry 98 Laboratory Results - last 24 hr 05/09/19 05/09/19 14:15 14:15 WBC 9.33 RBC 4.07 L Hgb 12.1 Hct 36.6 L MCV 89.9 MCH 29.7 MCHC 33.1 RDW Std Deviation 12.9 Plt Count 276 MPV 10.2 Immature Gran % (Auto) 0.0 Neut % (Auto) 66.7 Lymph % (Auto) 23.2 [place] % (Auto) 9.1 Eos % (Auto) 0.8 Baso % (Auto) 0.2 Immature Gran # (Auto) 0.00 Neut # (Auto) 6.23 Lymph # (Auto) 2.16 [place] # (Auto) 0.85 H Eos # (Auto) 0.07 Baso # (Auto) 0.02 PT 15.0 INR 1.16 PTT (Actin FS) 32.9 Orders Category Date Time Status Nursing- Obtain EKG ONCE Care 05/09/19 14:21 Active CHEST-1 VIEW [RAD] Stat Exams 05/09/19 14:21 Taken CBC WITH ELECTRONIC DIFF [HEME] Stat Lab 05/09/19 14:15 Completed COMPREHENSIVE METABOLIC PANEL [CHEM] Stat Lab 05/09/19 14:15 Received PRO B-NATRIURETIC PEPTIDE Stat Lab 05/09/19 14:15 Received PT [PROTIME WITH INR] [COAG] Stat Lab 05/09/19 14:15 Completed PTT [COAG] Stat Lab 05/09/19 14:15 Completed TROPONIN T Stat Lab 05/09/19 14:15 Received Sucralfate [Carafate Liquid] Med 05/09/19 14:47 Discontinued 1 gm PO NOW ONE EKG [EKG] Stat Ther 05/09/19 14:21 Ordered Result Diagrams: 05/09/19 14:15 05/09/19 14:15 - REASSESSMENT Reassessment #1 Time Reassessed: 15:11 Status: unchanged - EKG 1 Time of EKG reading by physician:: 16:23 EKG Read and Signed by:: Javier Barriga EKG Interpretation (*Must complete 3 of following elements*): Normal Rate: 78 Rhythm: sinus rhythm with premature supraventricular complexes [place]: normal QRS: normal MI Interval: normal ST Wave: normal - XRAY 1 XRAY: Bilateral XRAY Study: Chest Impression: See EMR Report (EXAM: CHEST-1 VIEW HISTORY: sob TECHNIQUE: Single view COMPARISON: 12/30/2017 FINDINGS: The lungs are well expanded. The heart is not enlarged. The vessels are not distended. There are no infiltrates. No effusion identified. IMPRESSION: Negative exam. Electronically signed by Abhinav Morton 05/09/2019 3:00 PM 05/09/19 1500 Interpreting Physician: Abhinav Morton MD Dictated Date/Time: 05/09/19 1500 cc: Javier Barriga MD; Santos Barney) - CONSULTS/PCP/HOSPITALIST Notification #1 *Consult/PCP/Hospitalist*: Lisa FEED CRUSHER for hospitalist Time Discussed: 18:09 Consult Disposition: Will see in ED, Admit Departure - Departure Date of Disposition Decision: 05/09/19 Time of Disposition Decision: 18:05 DIAGNOSIS: Multiple sclerosis exacerbation, Achalasia, Pericardial effusion, SOB (shortness of breath) Disposition: ADMITTED INPATIENT 09 Certified Medical Emergency: Emergent Condition: Fair Referrals and Follow-Ups: Santos Barney [Primary Care Provider] - - Critical Care Note This patient required my direct & personal management of CC.: No Attestation - Physician/ CARLOS Attestation Patient care was provided by Advanced Practice Provider:: No The physician spent face to face time with patient:: Yes Advanced Practice Provider documentation review:: Supervising physician onsite and consulted in the evaluation and care of this patient. The physician did have a face to face encounter with the patient. This chart was documented by the indicated scribe, (Brittani Agarwal Scribe) and accurately reflects the services I performed and decisions made by me, Javier Barriga MD, as attested by the provider's signature.
[2019-05-09] MEDS ORDERED: TYLENOL PO PRN (18:38)
[2019-05-09] MEDS ORDERED: ZOFRAN IV PRN (18:38)
[2019-05-09] MEDS: NS 1,000 ML IV SCH (19:32)
--- NOTE | 2019-05-09 20:19 | HISTORY AND PHYSICAL ---
ADDENDUM: HISTORY OF PRESENT ILLNESS: I have seen and examined Ms. Carlson today in the ER. was there. The son was there and the [id number] was also there. Ms. Carlson has an extensive medical history including MS, follows up with Dr. Scott, esophageal dysmotility syndrome, has had multiple stretches to the esophagus, recently underwent Botox injection with Dr. Morales. Ms. Carlson came in this time because of chest pain, inability to swallow even liquid. Upon presentation, she was evaluated. Her initial vitals were within normal range with a blood pressure of 133/74. PHYSICAL EXAMINATION: GASTROINTESTINAL: Some mild epigastric discomfort and generalized tenderness in the abdomen. HEENT: Her mucous membranes are remarkably dry. INVESTIGATIONS: A chest x-ray initially showed negative exam. CTA of the lungs shows no pulmonary edema. Tiny pericardial effusion with trace bilateral effusion. Upper part of the abdomen did not show any disease. Review of other investigations done in the hospital. Ms. Carlson had a barium swallow done on 04/20/2019. She did have an extensive tertiary contraction upon swallowing indicative of diffuse esophageal spasm. ASSESSMENT: 1. Dysphagia with odynophagia, most likely secondary to diffuse esophageal spasm. 2. History of cricopharyngeal spasm. 3. The patient is status post esophageal stricture dilation and Botox injection. 4. Clinical volume depletion. 5. History of multiple sclerosis and fibromyalgia. PLAN: For tonight, we are going to keep Ms. Carlson NPO, hydrate her well overnight, keep her on PPI and discontinue the sulindac. We will also get GI to evaluate her. We will restart her on clear liquids tomorrow and see if she is able to tolerate. I have discussed my findings and the plan with the family and the patient. They are all in agreement. Please refer to the details of the history and physical which has been dictated by the WORKERS COMPENSATION ADMINISTRATOR in the chart. cc: Oscar Byrnes MD
--- NOTE | 2019-05-09 21:02 | HISTORY AND PHYSICAL ---
PRIMARY CARE PROVIDER: Dr. Barney. NEUROLOGY: Dr. Scott. GI: Dr. Jules and Dr. Morales. CHIEF COMPLAINT: Difficulty swallowing. [place] like she was choking. HISTORY OF PRESENT ILLNESS: Ms. Alicia Carlson is a 73-year-old female who apparently was started on antibiotics Wednesday for acute sinusitis and urinary tract infection secondary to production of green sputum. She has had loss of appetite. Apparently this morning, she had an episode of her MS flare with difficulty swallowing food and fluids, but she had a harder time with her pills this morning. [place] like it was choking and caused pressure in her chest. She most recently has been treated by Dr. Morales for esophageal spasms where he injected with Botox, and even had to do esophageal stricture dilatation within the last 2 to 3 weeks. Secondary to this episode, she presents to the emergency department with these complaints. We are going to monitor her overnight, check her swallow, consult Gastroenterology for any further recommendations, and we will start her on Cardizem to help with the esophageal spasms. PAST MEDICAL HISTORY: 1. Hyperlipidemia. 2. Hypothyroidism. 3. Anxiety, depression. 4. Fibromyalgia. 5. TIA. 6. MS. 7. CVA. 8. Seizures and epilepsy. 9. Cataracts and glaucoma. 10. Peptic ulcer disease. 11. GERD. 12. Osteoarthritis. SURGICAL HISTORY: 1. Bilateral knee replacements. 2. Right thumb surgery. 3. Cataract surgery. 4. Extra toes and fingers removed. 5. Right wrist surgery. 6. Hysterectomy. 7. Six surgeries on her jaw, cheek and chin. 8. Right hip replacement. 9. Esophageal dilatation with Botox and biopsy within the last 2 to 3 weeks. SOCIAL HISTORY: She uses leg braces to walk. Mostly is in wheelchair as needed. She lives in [facility]. She denies smoking, alcohol, or illicit drug use. Her is close as well. FAMILY HISTORY: Grandmother had heart disease. Mother had heart disease. Father had melanoma. Brother had prostate cancer. ALLERGIES: Metronidazole and pregabalin. HOME MEDICATIONS: 1. Trazodone 25 mg p.o. nightly. 2. Latanoprost 1 drop both eyes nightly. 3. Aspirin 81 mg p.o. daily. 4. Bentyl 20 mg p.o. daily. 5. Crestor 20 mg p.o. daily. 6. Ditropan 5 mg p.o. twice daily. 7. Doxycycline 100 mg p.o. twice daily. 8. Neurontin 300 mg p.o. twice daily. 9. Ritalin 5 mg p.o. twice daily. 10. Multivitamin 1 tablet p.o. daily. 11. Omeprazole 30 mg p.o. daily. 12. Prozac 10 mg p.o. t.i.d. 13. Sulindac, which likely this has been discontinued, 200 mg p.o. twice daily. 14. Synthroid 88 mcg p.o. daily. REVIEW OF SYSTEMS: A 14 point review of systems are complete and all are negative for those mentioned above in HPI. PHYSICAL EXAMINATION: VITAL SIGNS: Temperature 99.7 degrees, heart rate 83, respiratory rate 19, blood pressure 133/74, O2 saturation 98% on room air. She is 5 feet 6 inches tall, 189 pounds. BMI is 30.5. GENERAL: Ms. Alicia Carlson is a 73-year-old female. She is in no acute distress. She is able to answer questions appropriately. HEENT: Atraumatic, normocephalic. Pupils equal, round, reactive to light. Extraocular movements intact. Mucous membranes are dry. NECK: Trachea midline. CARDIOVASCULAR: S1, S2. Regular rate and rhythm. No rubs, gallops, murmurs. No lower extremity edema. +2 dorsalis and radial pulses. Negative JVD or carotid bruits. PULMONARY: Clear to auscultation. Bilateral breath sounds. No accessory muscle use or work of breathing noted. GI: Soft. Mild tenderness in the left lower quadrant. Positive bowel sounds x4. EXTREMITIES: Moves all extremities equally with decreased range of motion, even a bit of slight footdrop. NEUROLOGIC: Alert and oriented x3. Follows commands. Sensory is intact. SKIN: Warm, dry, intact. LABORATORY DATA: White blood cells 9000, hemoglobin 12, hematocrit 36, platelet count 276,000. INR is 1.16, PTT is 32.9. D-dimer 0.97. Sodium 138, potassium 3.7, BUN 16, creatinine 0.8, glucose 120, calcium 8.8, bilirubin 0.35, AST 17, ALT 9. Troponin less than 0.01. ProBNP 158. Albumin 4.0. IMAGING: Chest x-ray: Negative exam. EKG: Sinus rhythm with PVCs, rate 78. QTc is 451. Pulmonary arteriogram: No pulmonary emboli. Tiny pericardial effusion. Trace pleural effusions. ASSESSMENT AND PLAN: 1. Esophageal spasms. Cardizem will be added. She will be on a clear liquid diet. We will check her swallow and consult Gastroenterology. She most recently had Botox and esophageal stricture. Apparently, she nearly choked this morning on pills, and is worried about swallowing. 2. Multiple sclerosis. She is currently not on any medications for it, but she is followed by Dr. Scott. 3. Peptic ulcer disease. She was stopped on the Sulindac for that and she is on proton pump inhibitor. 4. Gastroesophageal reflux disease. Again, on proton pump inhibitor. 5. Deep venous thrombosis prophylaxis with sequential compression devices. Dictated by ALFRED Thomason for Oscar Byrnes MD cc: ALFRED Thomason MD
[2019-05-09] MEDS: XALATAN 0.005% OPH SOLN BOTH EYES SCH (22:47)
[2019-05-10] MEDS: DESYREL PO SCH ×2 (00:14→22:30)
[2019-05-10] MEDS: DITROPAN PO SCH ×3 (00:15→22:30)
[2019-05-10] MEDS: NEURONTIN PO SCH ×3 (00:15→22:29)
[2019-05-10] MEDS: DOXYCYCLINE PO SCH ×3 (00:15→22:29)
[2019-05-10] MEDS: NS 1,000 ML IV SCH ×2 (06:27→18:08)
[2019-05-10] MEDS: SYNTHROID PO SCH (06:27)
[2019-05-10 07:53] LABS: HEMATOCRIT 37.4 % (37.0-47.0); HEMOGLOBIN 12.5 g/dL (12.0-16.0); IMM GRAN# 0.02 X1000 (0.0-0.04); IMM GRAN% 0.2 % (0.0-0.5); LYMPH# 0.92 X1000 (1.2-3.4); LYMPH% 9.8 % (20.5-51.1); MCH 29.7 PG (27-31); MCHC 33.4 g/dL (33-37); MCV 88.8 FL (81-99); MONO# 0.29 X1000 (0.11-0.59); MONO% 3.1 % (1.7-9.3); MPV 9.9 FL (7.4-10.4); NEUT# 8.19 X1000 (1.4-6.5); NEUT% 86.9 % (42.2-75.2); PLT 305 X1000 (130-400); RBC 4.21 XMIL (4.2-5.4); RDW 12.4 % (11.5-14.5); WBC 9.42 X1000 (4.8-10.8)
[2019-05-10 07:57] LABS: INR 1.18; PROTIME 15.1 Seconds (11.0-16.0)
[2019-05-10 07:58] LABS: PTT 32.7 Seconds (22.3-41.8)
[2019-05-10 08:13] LABS: BANDS 4 % (0-1); LYMPHS 14 % (21-51); MONO 2 % (1-9); SEGS 80 % (42-75)
[2019-05-10 08:20] LABS: AGAP 10; ALB/GLOB RATIO 1.6; ALBUMIN 3.9 g/dL (3.5-5.0); ALKALINE PHOSPHATASE 94 U/L (32-104); BUN 14 mg/dL (8-22); CALCIUM 9.5 mg/dL (8.8-10.2); CHLORIDE 104 mmol/L (98-107); COSMO 284; CREATININE 0.6 mg/dL (0.5-0.9); ESTIMATED GFR > 60; GLUCOSE 135 mg/dL (70-104); GOT 13 U/L (10-30); GPT 9 U/L (10-36); MAGNESIUM 2.3 mg/dL (1.5-2.7); POTASSIUM 4.1 mmol/L (3.5-5.1); SODIUM 141 mmol/L (136-145); TCO2 27 mmol/L (25-35); TOTAL BILIRUBIN 0.32 mg/dL (0.20-1.00); TOTAL PROTEIN 6.3 g/dL (6.3-8.3)
[2019-05-10] MEDS: ASPIRIN PO SCH ×2 (10:46→11:15)
[2019-05-10] MEDS: BENTYL PO SCH (10:46)
[2019-05-10] MEDS: CRESTOR PO SCH (10:47)
[2019-05-10] MEDS: CARDIZEM PO SCH ×3 (10:47→22:29)
[2019-05-10] MEDS: PRILOSEC PO SCH (10:48)
[2019-05-10] MEDS: THERA M PLUS PO SCH (10:49)
[2019-05-10] MEDS: PROZAC PO SCH ×3 (10:49→22:29)
--- NOTE | 2019-05-10 17:22 | PROGRESS NOTE ---
DATE: 05/10/2019 SUBJECTIVE: Today, Ms. Carlson refers to be doing a little better. She said she still felt some burning in the upper epigastrium after she drank some hot water. OBJECTIVE: Vital signs: Blood pressure is 148/73, pulse of 65, respirations 15, and temperature is 98.6 degrees. General: Ms. Carlson is a 73-year-old female. She is in bed in no distress. HEENT: Mucosa is pink and moist. Anicteric. Acyanotic. Neck: Supple. Lungs: Chest with good air entry bilaterally. A few dry crackles in the posterior lung lora. Cardiovascular: Regular rate and rhythm. No murmurs, no rubs. No gallops. Abdomen: Soft. Distended, but nontender. Bowel sounds are present. INSTRUCTIONAL SUPPORT SPECIALIST: Patient is awake, alert, and oriented. LABORATORY DATA: CBC is reviewed and is unremarkable. Chemistry is also completely within normal range. INR is 1.18. MEDICATIONS: Current medications have all been reviewed, and no changes. ASSESSMENT: 1. Dysphagia with odynophagia secondary to diffuse esophageal spasm. The patient has been evaluated multiple times by Dr Morales. She recently underwent esophageal stretch dilation with Botox injection. 2. History of cricopharyngeal spasm. 3. Clinical volume depletion, improved with IV fluids. 4. History of multiple sclerosis. 5. Fibromyalgia. 6. Hypothyroidism. We will continue with the thyroid supplement. We will check on her TSH In general, I think Ms. Carlson is doing well. We started her on Cardizem for the diffuse esophageal spasms. We will continue with her current medications. She has been started on full liquid diet. If she is able to tolerate this, will be okay to discharge her tomorrow. cc: Oscar Byrnes MD [facility]
--- NOTE | 2019-05-10 18:55 | GASTROENTEROLOGY CONSULTATION ---
DATE: 05/10/2019 REASON FOR CONSULT: Dysphagia. HISTORY OF PRESENT ILLNESS: Ms. Carlson is a 73-year-old female with a past medical history of MS, complained of difficulty swallowing. She said that even if she eats a little bit, it makes her throw up. She feels like it gets stuck in her throat and has a choking sensation. She has been seen by Dr. Morales. She said 3 weeks back they had done an EGD with dilation and last week she had a Botox shot. She takes 81 mg aspirin for her TIA and CVA, but she has not taken it for the last 2 weeks. Yesterday, she said she was having nausea and vomiting, but she did not have any blood in her stools. She says she does have regular bowel movements and has been having urinary frequency and urgency with generalized abdominal pain. She mentioned losing at least 4 to 5 pounds in the last couple of weeks. The patient's left leg is weak. She has to wear braces to walk. She has numbness and tingling in the feet and hands and vision problems in her left eye. Patient complained of fatigue and weakness, and has esophageal spasms on and off. Patient had a speech modified barium swallow in February with findings of mild cricopharyngeal achalasia and moderate presbyesophagus with delay in clearance of distal esophagus. 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 PAST MEDICAL HISTORY: Hyperlipidemia, hypothyroidism, anxiety, depression, fibromyalgia, MS, TIA, CVA, seizures and epilepsy, cataract, glaucoma, GERD, arthritis, peptic ulcer disease. PAST SURGICAL HISTORY: Bilateral knee replacements, right thumb surgery, cataract surgery, extra toes and fingers removed, right hand surgery, hysterectomy. She had a reconstruction of her face, right hip replacement. SOCIAL HISTORY: The patient is . She has 2 sons, 5 grand kids. She has denied drinking any alcohol, illicit drugs, or smoking. FAMILY HISTORY: Grandmother had heart problems. Mother had heart problems. Father had melanoma and brother had prostate cancer. ALLERGIES: Metronidazole and pregabalin. HOME MEDICINES: Multivitamin 1 tablet, Synthroid 88 mcg daily, Latanoprost ophthalmic solution 1 drop in both eyes, Prozac 10 mg 3 times a day, trazodone 25 mg at bedtime, gabapentin 300 mg twice a day, Ditropan 5 mg twice a day, sulindac 200 mg twice a day, aspirin 81 mg daily, Crestor 20 mg daily, doxycycline 100 mg twice a day, methylphenidate HCL 5 mg twice a day, omeprazole 40 mg daily, Bentyl 20 mg daily. REVIEW OF SYSTEMS: As per HPI. Otherwise, 12 point review of system is negative. PHYSICAL EXAMINATION: Vital Signs: Temperature 98.6, pulse is 95, respirations 15, blood pressure 148/73, oxygen saturation is 93% on room air. The patient's weight is 189 pounds, BMI is 30.5 kg/m2. General: She is alert, oriented x3, and in no acute distress. HEENT: Pale conjunctivae. No icterus. PERRL. Neck: Supple. Lungs: Clear to auscultation in the anterior lora. Cardiovascular: Regular rate and rhythm. Abdomen: Soft, nondistended. Mild tenderness in the lower quadrant. Active bowel sounds heard in all 4 quadrants. Extremities: The patient's lower extremities are weak. No edema. No clubbing. Pedal pulses 2+ present bilaterally. Numbness and tingling. Neurological: Alert and oriented x3. Nonfocal. Cranial nerves 2-12 grossly intact. LABORATORY: WBC 9.42, RBC 4.21, hemoglobin 12.5, hematocrit 37.4, platelet count is 305,000. Sodium 141, potassium 4.1, chloride 104, carbon dioxide 27, anion gap 10, BUN 14, creatinine 0.6, glucose 135, calcium 9.5, magnesium 2.3, total bilirubin 0.32, AST 13, ALT 9, alkaline phosphatase 94, albumin 3.9. Chest x-ray showed negative exam. Pulmonary arteriogram showed no pulmonary emboli. Tiny pericardial effusion with trace pleural effusions. IMPRESSIONS: 1. Dysphagia. 2. Esophageal spasm. 3. Multiple sclerosis. 4. Peptic ulcer disease. 5. Gastroesophageal reflux disease. PLAN: Patient needs an outpatient manometry done. Speech therapy needs to evaluate patient. The patient is currently on IV fluids, normal saline at 100 mL. She is getting doxycycline antibiotics. She is currently on a clear liquid diet. We will advance the diet as tolerated. We will continue to monitor the patient and follow the plan of care per PCP. This plan was discussed with Dr. Leary. Thank you for your consult and please call us for any further questions or concerns. Dictated by ALFRED Medellin for Bull Leary MD Physician Attestation I have seen and examined the patient. I have discussed and reviewed the the note by Sammie SIMON and agree with findings and plan as documented. In brief, Ms. Alicia Carlson is a 73 year old woman with MS, GERD, and PUD who presents to GI service of dysphagia to primarily solid foods. She has had recent esophagram and EGD x2 with Dr. Morales with empiric dilation and botox to GEJ without significant improvement. She was told that she has "esophageal spasm" but has not had formal manometry testing. Speech therapy has been consulted. Recommend MBS and outpatient referral for manometry. No indication for repeat EGD at this time given recent endoscopic interventions. I suspect she had motility disorder +/- oropharyngeal dysphagia. MTDD
[2019-05-10] MEDS: XALATAN 0.005% OPH SOLN BOTH EYES SCH (22:28)
[2019-05-11] MEDS: NS 1,000 ML IV SCH ×2 (00:45→03:23)
[2019-05-11] MEDS: SYNTHROID PO SCH (06:11)
[2019-05-11 07:27] LABS: BASO# 0.01 X1000 (0.0-0.2); BASO% 0.1 % (0.0-0.8); EOS% 1.2 % (0.0-10.0); HEMATOCRIT 36.4 % (37.0-47.0); HEMOGLOBIN 11.9 g/dL (12.0-16.0); IMM GRAN# 0.02 X1000 (0.0-0.04); IMM GRAN% 0.2 % (0.0-0.5); LYMPH% 35.2 % (20.5-51.1); MCH 29.8 PG (27-31); MCHC 32.7 g/dL (33-37); MCV 91.2 FL (81-99); MONO% 6.1 % (1.7-9.3); NEUT# 4.71 X1000 (1.4-6.5); NEUT% 57.2 % (42.2-75.2); PLT 302 X1000 (130-400); RBC 3.99 XMIL (4.2-5.4); RDW 12.6 % (11.5-14.5); WBC 8.24 X1000 (4.8-10.8)
[2019-05-11 07:43] LABS: AGAP 12; ALB/GLOB RATIO 1.5; ALBUMIN 3.7 g/dL (3.5-5.0); ALKALINE PHOSPHATASE 84 U/L (32-104); BUN 12 mg/dL (8-22); CALCIUM 9.1 mg/dL (8.8-10.2); CHLORIDE 107 mmol/L (98-107); COSMO 284; CREATININE 0.5 mg/dL (0.5-0.9); ESTIMATED GFR > 60; GLUCOSE 84 mg/dL (70-104); GOT 15 U/L (10-30); GPT 9 U/L (10-36); MAGNESIUM 2.2 mg/dL (1.5-2.7); POTASSIUM 3.7 mmol/L (3.5-5.1); SODIUM 143 mmol/L (136-145); TCO2 24 mmol/L (25-35); TOTAL BILIRUBIN 0.31 mg/dL (0.20-1.00); TOTAL PROTEIN 6.1 g/dL (6.3-8.3)
[2019-05-11] MEDS: BENTYL PO SCH (09:20)
[2019-05-11] MEDS: ASPIRIN PO SCH (09:20)
[2019-05-11] MEDS: THERA M PLUS PO SCH (09:21)
[2019-05-11] MEDS: CRESTOR PO SCH (09:21)
[2019-05-11] MEDS: DITROPAN PO SCH (09:22)
[2019-05-11] MEDS: NEURONTIN PO SCH (09:22)
[2019-05-11] MEDS: PROZAC PO SCH (09:22)
[2019-05-11] MEDS: CARDIZEM PO SCH (09:22)
[2019-05-11] MEDS: PRILOSEC PO SCH (09:22)
[2019-05-11] MEDS: DOXYCYCLINE PO SCH (09:22)
[2019-05-11 13:01] VITALS: BP 137/72
--- NOTE | 2019-05-11 13:15 | GASTROENTEROLOGY PROGRESS NOTE ---
DATE: 05/11/2019 SUBJECTIVE: Ms. Carlson is a 73-year-old female who was sitting on the chair having her breakfast. Denied any nausea, vomiting, abdominal pain. She said she was feeling good and she was about to go home. OBJECTIVE: Vital signs: 98.8, pulse 73, respirations 18, blood pressure 151/66, oxygen saturation 97% on room air. The patient's weight is 189 pounds with BMI of 30.5 kg/m2. General: She is alert, oriented x3, and in no acute distress. HEENT: Pale conjunctivae. No icterus. PERRL. Left eye, she has left vision problem. Cardiovascular: Regular rate and rhythm. Lungs: Clear to auscultation in the anterior lora. Abdomen: Soft, nontender, nondistended, active bowel sounds heard in all 4 quadrants. Extremities: Generalized edema. Pedal pulses 2+ present bilaterally. No clubbing, no cyanosis. Neurological: She is alert and oriented x3. LABORATORY: WBC is 8.24, RBC is 3.99, hemoglobin is 11.9, hematocrit is 36.4, platelet count is 302. Sodium 143, potassium 3.7, chloride 107, carbon dioxide 24, anion gap 12, BUN 12, creatinine 0.5, calcium 9.5, magnesium 2.2, total bilirubin is 0.31, AST 15, ALT is 9, alkaline phosphatase is 84. IMPRESSION AND PLAN: 1. Dysphagia. 2. Esophageal spasm. 3. Multiple sclerosis. 4. Peptic ulcer disease. 5. Gastroesophageal reflux disease. PLAN: We suggest patient has an outpatient manometry for her esophageal spasms. She is on multivitamin and Zofran for nausea and vomiting. Her hemoglobin today was 11.9 and 36.4. We will continue to monitor the patient. The patient is going home today. This plan was discussed with Dr. Vargas. Please call us for any further questions or concerns. Dictated by ALFRED Medellin for Hesham Vargas MD cc: Hesham Vargas MD I have seen and examined the patient myself. I agree with the above plan of care. I have discussed the above with the patient and all questions were answered. She will follow up with Dr Morales in few days. Please call us with any further questions or concerns. [facility]
--- NOTE | 2019-05-12 12:40 | DISCHARGE SUMMARY ---
ADMISSION DATE: 05/09/2019 DISCHARGE DATE: 05/11/2019 DISPOSITION: Home. FOLLOW-UP: 1. Dr. Barney. 2. Dr. Morales. 3. Dr. Leary. CONSULTATION DURING THIS ADMISSION: GI was consulted; patient was seen by Dr. Leary. INVASIVE PROCEDURES DONE DURING THIS ADMISSION: None. IMAGING STUDIES OF SIGNIFICANCE: 1. A chest x-ray which was done 05/09/2019 was negative. 2. A CTA of the lungs also done on 05/09/2019 shows no pulmonary emboli, tiny pericardial effusion with trace pleural effusions. ADMISSION DIAGNOSES: 1. Esophageal spasm. 2. Multiple sclerosis. 3. History of peptic ulcer disease. 4. Gastroesophageal reflux. DIAGNOSES AT THE TIME OF DISCHARGE: 1. Dysphagia with odynophagia secondary to diffuse esophageal spasms. 2. History of cricopharyngeal spasm. 3. Clinical volume depletion, improved. 4. History of multiple sclerosis. 5. Hypothyroidism. 6. Fibromyalgia. DISCHARGE MEDICATIONS: 1. Multivitamin 1 tablet daily. 2. Synthroid 88 mcg p.o. daily. 3. Fluoxetine 10 mg three times per day. 4. Trazodone 25 mg p.o. at bedtime. 5. Gabapentin 300 mg b.i.d. 6. Oxybutynin 5 mg b.i.d. 7. Aspirin 81 mg p.o. daily. 8. Crestor 20 mg p.o. daily. 9. Methylphenidate. 10. Omeprazole 40 mg p.o. daily. 11. Diltiazem 30 mg p.o. three times per day. PRESENTING COMPLAINT: Difficulty swallowing; she feels like she was choking. HISTORY OF PRESENTING COMPLAINT: Ms. Carlson is a 73-year-old female with multiple comorbidities including depression, anxiety, fibromyalgia, MS, previous strokes, hypothyroid, and also esophageal disorders. Patient is status post multiple esophageal dilations and recently Botox injection to the esophagus, came in this time because she was having some difficulty breathing. She says she felt like she was choking. Upon presenting to the emergency room, she was evaluated, including a chest x-ray which was unremarkable. Ms. Carlson was subsequently admitted because of difficulty swallowing evaluation. HOSPITAL COURSE: Ms. Carlson was admitted to the medical floor. She was adequately fluid resuscitated for dehydration. She was started on clear liquids; speech therapy and GI were both consulted. Ms. Carlson was seen by Dr. Leary, who recommended outpatient manometric studies. Ms. Carlson had recently undergone EGD with Botox injections, so GI did not feel like there was the need for another procedure. Ms Carlson improved remarkably during the short course hospital stay. She was able to tolerate mechanical soft diet. She referred this morning to be a lot better and that she has been eating without any problems. We think she is stable to be discharged. Diltiazem has been added to her medication as a trial for the diffuse esophageal spasms. She has been advised to follow up with her primary care doctor. Ms. Carlson is also advised by Dr. Leary to have an outpatient manometric studies to document the true esophageal motility disorder. All the discharge instructions have been discussed with Ms. Carlson. She voiced understanding. TIME SPENT FOR DISCHARGE: 38 minutes. cc: MD Kirk Markham MD Ryan Gregorio, MD Raphael K. Quansah, MD [facility] [facility]
== END 2019-05-11 13:09 | disposition home or self-care (01) | DRG 59 ==
LOC: SUPCPDRO → ED 13:27 → 3N 21:07
PROVIDERS: ATTEND Internal Medicine